=== PATIENT | female | born 1975 | race Caucasian/White ===

== ENCOUNTER → 2024-03-30 | Outpatient (CLI) | payer OTHER ==
[~2024-03-30] VITALS: Ht 160 cm; Wt 58.5 kg
[~2024-03-30] MED LIST: ARMOUR THYROID90 MG PO; MOBIC 7.5MG7.5 MG PO; NEURONTIN100 MG/CAP PO; VENTOLIN0.09 MG IH; ZYRTEC 10MG10 MG PO
[2024-03-30 08:42] VITALS: BP 122/60; PULSE 49; TEMP 97.7
[2024-03-30 09:20] VITALS: BP 108/76; PULSE 50
== END ==
LOC: COL.RAD 08:15
DX: E04.1 Nontoxic single thyroid nodule (principal)
CPT/HCPCS: 32106

== ENCOUNTER → 2024-05-19 | Outpatient (CLI) | payer OTHER | LOC: MHCPAIN 12:28 | DX: M54.17 Radiculopathy, lumbosacral region (principal); M47.897 Other spondylosis, lumbosacral region; M51.26 Other intervertebral disc displacement, lumbar region; M54.32 Sciatica, left side | CPT/HCPCS: G0463 ==